=== PATIENT | female | born 1985 | race American Indian/Alaskan Native ===

== ENCOUNTER 2017-12-22 21:23 | Emergency (ER) | payer MEDICAID ==
[2017-12-22 22:34] LABS: Hematocrit 42.3 % (30.3-42.9); Hemoglobin 13.6 gm/dl (10.1-14.3); Mean Corpuscular HGB Conc 32 % (30-34); Mean Corpuscular Hemoglobin 32 pg (28-32); Mean Corpuscular Volume 101 fl (79-97); Platelet Count 273 K/mm3 (140-440)
[2017-12-22 22:36] LABS: Lymphocytes % (Auto) 28.3 % (13.4-35.0); Monocytes % (Auto) 4.8 % (0.0-7.3)
[2017-12-22 22:37] LABS: Basophils # (Auto) 0.1 K/mm3 (0.0-0.1); Basophils % (Auto) 0.7 % (0.0-1.8); Eosinophils # (Auto) 0.2 K/mm3 (0.0-0.4); Lymphocytes # (Auto) 2.5 K/mm3 (1.2-5.4); Monocytes # (Auto) 0.4 K/mm3 (0.0-0.8)
--- NOTE | 2017-12-22 22:37 | Cat Scan Report ---
FINAL REPORT PROCEDURE: CT HEAD/BRAIN WO CON TECHNIQUE: Computerized tomography of the head was performed without contrast material. HISTORY: [place] COMPARISON: No prior studies are available for comparison. FINDINGS: Skull and scalp: Normal. Paranasal sinuses: Normal. Ventricles and subarachnoid spaces: Normal. Cerebrum: No evidence of hemorrhage, acute infarction or mass . Cerebellum and brainstem: No evidence of hemorrhage, acute infarction or mass. Vasculature: Normal. Comments: None. IMPRESSION: Normal Examination
[2017-12-22 23:11] LABS: BUN/Creatinine Ratio 15; Blood Urea Nitrogen 12 mg/dL (7-17); Calcium 9.3 mg/dL (8.4-10.2); Hemolysis Index 126
--- NOTE | 2017-12-22 23:32 | XRay Report ---
FINAL REPORT PROCEDURE: XRAY CHEST 2 VIEWS TECHNIQUE: PA and lateral chest radiographs were obtained. CPT 75212 HISTORY: SOB COMPARISON: No prior studies are available for comparison. FINDINGS: Heart: Normal. Mediastinum/Vessels: Normal. Lungs/Pleural space: Normal. Bony thorax: No acute osseous abnormality. Other: IMPRESSION: Normal examination.
[2017-12-23] MEDS ORDERED: MOTRIN PO ONE ×2 (02:48→02:51)
--- NOTE | 2017-12-23 06:38 | Emergency Department Report ---
ED General Adult HPI - General Chief complaint: Headache Stated complaint: HEADACHE,SOB Time Seen by Provider: 12/23/17 06:35 Source: patient Mode of arrival: Ambulatory Limitations: No Limitations - History of Present Illness Initial comments: Patient states that last night she felt like she had to take deep breaths. She was not short of breath. She did not have chest pain. She was not coughing. She also stated that she had some headache. Apparently she complained of some blood blurred vision in triage. However to me she denied any visual change specifically blurred vision or diplopia. She has no headache at the time of my encounter. Her pulse oximetry is 100%. Respirations are unlabored and she had no recurrent episodes of essentially sighing or taking a deep breath. She admits to having an anxiety disorder but doesn't think she was anxious last night. Patient states she's had intermittent headaches for the last 2 weeks since she came here.. She has a primary care physician in [place]. Her sighing symptoms were last night. She's had no recent travel. She denies leg pain or swelling. -: minutes(s) Location: head Consistency: now resolved Improves with: none Worsens with: none Associated Symptoms: denies other symptoms Treatments Prior to Arrival: none - Related Data Previous Rx's Medication Instructions Recorded Last Taken Type Butalb/Acetamin/Caff 50-325-40 1 tab PO Q6HR PRN #10 tab 12/23/17 Unknown Rx [Fioricet] Allergies Allergy/AdvReac Type Severity Reaction Status Date / Time No Known Allergies Allergy Unverified 12/22/17 21:51 ED Review of Systems ROS: Stated complaint: HEADACHE,SOB Other details as noted in HPI Constitutional: denies: chills, fever Eyes: denies: eye pain, eye discharge, vision change ENT: denies: ear pain, throat pain Respiratory: denies: cough, shortness of breath, wheezing Cardiovascular: denies: chest pain, palpitations Endocrine: no symptoms reported Gastrointestinal: denies: abdominal pain, nausea, diarrhea Genitourinary: denies: urgency, dysuria, discharge Musculoskeletal: denies: back pain, joint swelling, arthralgia Skin: denies: rash, lesions Neurological: headache. denies: weakness, paresthesias Psychiatric: denies: anxiety, depression Hematological/Lymphatic: denies: easy bleeding, easy bruising ED Past Medical Hx - Past Medical History Previous Medical History?: No - Surgical History Past Surgical History?: Yes Additional Surgical History: x4 - Social History Smoking Status: Never Smoker Substance Use Type: None - Medications Home Medications: Home Medications Medication Instructions Recorded Confirmed Last Taken Type Butalb/Acetamin/Caff 50-325-40 1 tab PO Q6HR PRN #10 tab 12/23/17 Unknown Rx [Fioricet] ED Physical Exam - General Limitations: No Limitations General appearance: alert, in no apparent distress - Head Head exam: Present: atraumatic, normocephalic - Eye Eye exam: Present: normal appearance, PERRL, EOMI. Absent: scleral icterus - ENT ENT exam: Present: mucous membranes moist - Neck Neck exam: Present: normal inspection - Respiratory Respiratory exam: Present: normal lung sounds bilaterally. Absent: respiratory distress - Cardiovascular Cardiovascular Exam: Present: regular rate, normal rhythm. Absent: systolic murmur, diastolic murmur, rubs, gallop - GI/Abdominal GI/Abdominal exam: Present: soft, normal bowel sounds. Absent: distended, tenderness, guarding, rebound, rigid - Extremities Exam Extremities exam: Present: normal inspection, full ROM, normal capillary refill. Absent: tenderness, pedal edema, joint swelling, calf tenderness - Back Exam Back exam: Present: normal inspection - Neurological Exam Neurological exam: Present: alert, oriented X3, CN II-XII intact. Absent: motor sensory deficit - Psychiatric Psychiatric exam: Present: normal affect, normal mood - Skin Skin exam: Present: warm, dry, intact, normal color. Absent: rash ED Course Vital Signs 12/22/17 12/23/17 12/23/17 21:51 03:01 05:00 Temperature 97.8 F 97.7 F 97.8 F Pulse Rate 70 72 69 Respiratory 18 16 18 Rate Blood Pressure 143/102 Blood Pressure [Left] Blood Pressure 121/71 122/80 [Right] O2 Sat by Pulse 98 100 100 Oximetry 12/23/17 07:41 Temperature 98.2 F Pulse Rate 80 Respiratory 16 Rate Blood Pressure Blood Pressure 119/74 [Left] Blood Pressure [Right] O2 Sat by Pulse 100 Oximetry - Reevaluation(s) Reevaluation #1: Patient's vital signs are normal. Her pulse oximetry is 100%. Her workup does not suggest an emergency medical condition. The symptoms would be ordinarily consistent with anxiety/panic disorder. 12/23/17 08:11 ED Medical Decision Making - Lab Data Result diagrams: 12/22/17 22:01 12/22/17 22:01 Laboratory Results - last 24 hr 12/22/17 12/22/17 22:01 22:01 WBC 8.7 RBC 4.20 Hgb 13.6 Hct 42.3 MCV 101 H MCH 32 MCHC 32 RDW 15.0 Plt Count 273 Lymph % (Auto) 28.3 [place] % (Auto) 4.8 Eos % (Auto) 2.0 Baso % (Auto) 0.7 Lymph # 2.5 [place] # 0.4 Eos # 0.2 Baso # 0.1 Seg Neutrophils % 64.2 Seg Neutrophils # 5.6 Sodium 137 Potassium 4.4 Chloride 103.0 Carbon Dioxide 18 L Anion Gap 20 BUN 12 Creatinine 0.8 Estimated GFR > 60 BUN/Creatinine Ratio 15 Glucose 101 H Calcium 9.3 - EKG Data -: EKG Interpreted by [facility] EKG shows normal: sinus rhythm, axis, intervals, QRS complexes, ST-T waves Rate: normal - EKG Data Interpretation: no acute changes, other (right bundle-branch block) - Radiology Data Radiology results: report reviewed (chest x-ray and CT head were negative/normal ) Critical care attestation.: If time is entered above; I have spent that time in minutes in the direct care of this critically ill patient, excluding procedure time. ED Disposition Clinical Impression: Anxiety Cephalalgia Qualifiers: Headache type: unspecified Headache chronicity pattern: acute headache Intractability: not intractable Qualified Code(s): R51 - Headache Disposition: DC-01 TO HOME OR SELFCARE Is pt being admited?: No Does the pt Need Aspirin: No Condition: Stable Instructions: Acute Headache (ED), Anxiety (ED) Additional Instructions: Return any acute change or worsening symptoms. Follow up with a primary care provider. Prescriptions: Butalb/Acetamin/Caff 50-325-40 [Fioricet] 1 tab PO Q6HR PRN #10 tab PRN Reason: Headache Referrals: HOLA PATEL MD [Primary Care Provider] - 3-5 Days [facility] [Provider Group] - 3-5 Days Time of Disposition: 08:15
[2017-12-23 07:44] VITALS: BP 119/74
== END 2017-12-23 08:44 | disposition home or self-care (01) ==
LOC: ED 21:23
DX: F41.9 Anxiety disorder, unspecified (principal); G44.009 Cluster headache syndrome, unspecified, not intractable
CPT/HCPCS: 36415; 70450; 71046; 80048; 85025; 93005; 93010; 99284

== ENCOUNTER 2019-06-13 23:29 | Emergency (ER) | payer SELFPAY ==
[2019-06-14 01:00] LABS: Basophils # (Auto) 0.1 K/mm3 (0.0-0.1); Basophils % (Auto) 1.4 % (0.0-1.8); Eosinophils # (Auto) 0.5 K/mm3 (0.0-0.4); Eosinophils % (Auto) 6.6 % (0.0-4.3); Hematocrit 38.3 % (30.3-42.9); Hemoglobin 12.7 gm/dl (10.1-14.3); Lymphocytes # (Auto) 3.4 K/mm3 (1.2-5.4); Lymphocytes % (Auto) 48.4 % (13.4-35.0); Mean Corpuscular HGB Conc 33 % (30-34); Mean Corpuscular Volume 98 fl (79-97); Monocytes # (Auto) 0.4 K/mm3 (0.0-0.8); Monocytes % (Auto) 6.3 % (0.0-7.3); Platelet Count 270 K/mm3 (140-440); Red Blood Count 3.89 M/mm3 (3.65-5.03); Red Cell Distribution Width 14.6 % (13.2-15.2)
[2019-06-14 01:12] LABS: BUN/Creatinine Ratio 18; Blood Urea Nitrogen 14 mg/dL (7-17); Calcium 9.1 mg/dL (8.4-10.2); Hemolysis Index 10
--- NOTE | 2019-06-14 03:55 | Emergency Department Report ---
ED General Adult HPI - General Chief complaint: Headache Stated complaint: WEAKNESS,HEADACHE, DIZZINESS Time Seen by Provider: 06/14/19 03:42 Source: patient Mode of arrival: Ambulatory Limitations: No Limitations - History of Present Illness Initial comments: Is a 34-year-old female presents to ED complaining of headache for the past week. Patient describes headache as throbbing and aching in nature and localized to her frontotemporal region. She is also stating that she is Having some intermittent dizziness throughout the day. Patient denies any injury, trauma, falls. Patient states that she hasn't headaches before but she isn't sure what this dizziness. Patient is also complaining of sinus pressure. - Related Data Previous Rx's Medication Instructions Recorded Last Taken Type Butalb/Acetamin/Caff 50-325-40 1 tab PO Q6HR PRN #20 tab 06/14/19 Unknown Rx [Fioricet 50-325-40] Meclizine [Antivert] 25 mg PO TID PRN #30 tablet 06/14/19 Unknown Rx Allergies Allergy/AdvReac Type Severity Reaction Status Date / Time No Known Allergies Allergy Unverified 12/22/17 21:51 ED Review of Systems ROS: Stated complaint: WEAKNESS,HEADACHE, DIZZINESS Other details as noted in HPI Comment: All other systems reviewed and negative ED Past Medical Hx - Past Medical History Previous Medical History?: No - Surgical History Past Surgical History?: Yes Additional Surgical History: x4 - Social History Smoking Status: Never Smoker - Medications Home Medications: Home Medications Medication Instructions Recorded Confirmed Last Taken Type Butalb/Acetamin/Caff 50-325-40 1 tab PO Q6HR PRN #20 tab 06/14/19 Unknown Rx [Fioricet 50-325-40] Meclizine [Antivert] 25 mg PO TID PRN #30 tablet 06/14/19 Unknown Rx ED Physical Exam - General Limitations: No Limitations General appearance: alert, in no apparent distress - Head Head exam: Present: atraumatic, normocephalic - Eye Eye exam: Present: normal appearance - ENT ENT exam: Present: mucous membranes moist - Neck Neck exam: Present: normal inspection - Respiratory Respiratory exam: Present: normal lung sounds bilaterally. Absent: respiratory distress - Cardiovascular Cardiovascular Exam: Present: regular rate, normal rhythm. Absent: systolic murmur, diastolic murmur, rubs, gallop - GI/Abdominal GI/Abdominal exam: Present: soft, normal bowel sounds - Extremities Exam Extremities exam: Present: normal inspection - Back Exam Back exam: Present: normal inspection - Neurological Exam Neurological exam: Present: alert, oriented X3 - Psychiatric Psychiatric exam: Present: normal affect, normal mood - Skin Skin exam: Present: warm, dry, intact, normal color. Absent: rash ED Medical Decision Making - Lab Data Result diagrams: 06/14/19 00:37 06/14/19 00:37 Laboratory Last Values WBC 7.0 K/mm3 (4.5-11.0) 06/14/19 00:37 RBC 3.89 M/mm3 (3.65-5.03) 06/14/19 00:37 Hgb 12.7 gm/dl (10.1-14.3) 06/14/19 00:37 Hct 38.3 % (30.3-42.9) 06/14/19 00:37 MCV 98 fl (79-97) H 06/14/19 00:37 MCH 33 pg (28-32) H 06/14/19 00:37 MCHC 33 % (30-34) 06/14/19 00:37 RDW 14.6 % (13.2-15.2) 06/14/19 00:37 Plt Count 270 K/mm3 (140-440) 06/14/19 00:37 Lymph % (Auto) 48.4 % (13.4-35.0) H 06/14/19 00:37 [place] % (Auto) 6.3 % (0.0-7.3) 06/14/19 00:37 Eos % (Auto) 6.6 % (0.0-4.3) H 06/14/19 00:37 Baso % (Auto) 1.4 % (0.0-1.8) 06/14/19 00:37 Lymph # 3.4 K/mm3 (1.2-5.4) 06/14/19 00:37 [place] # 0.4 K/mm3 (0.0-0.8) 06/14/19 00:37 Eos # 0.5 K/mm3 (0.0-0.4) H 06/14/19 00:37 Baso # 0.1 K/mm3 (0.0-0.1) 06/14/19 00:37 Seg Neutrophils % 37.3 % (40.0-70.0) L 06/14/19 00:37 Seg Neutrophils # 2.6 K/mm3 (1.8-7.7) 06/14/19 00:37 Sodium 140 mmol/L (137-145) 06/14/19 00:37 Potassium 3.6 mmol/L (3.6-5.0) 06/14/19 00:37 Chloride 101.3 mmol/L (98-107) 06/14/19 00:37 Carbon Dioxide 29 mmol/L (22-30) 06/14/19 00:37 13 mmol/L 06/14/19 00:37 BUN 14 mg/dL (7-17) 06/14/19 00:37 0.8 mg/dL (0.7-1.2) 06/14/19 00:37 Estimated GFR > 60 ml/min 06/14/19 00:37 18 % 06/14/19 00:37 Glucose 98 mg/dL (65-100) 06/14/19 00:37 Calcium 9.1 mg/dL (8.4-10.2) 06/14/19 00:37 HCG, Qual Negative (Negative) 06/14/19 00:37 Critical care attestation.: If time is entered above; I have spent that time in minutes in the direct care of this critically ill patient, excluding procedure time. ED Disposition Clinical Impression: Vertigo, Acute headache Disposition: - TO HOME OR SELFCARE Is pt being admited?: No Does the pt Need Aspirin: No Condition: Stable Instructions: Acute Headache (ED), Migraine Headache (ED), Vertigo (ED), Dizziness (ED) Additional Instructions: Make sure to follow up with the primary care physician as discussed. Take all your medications as you've been prescribed. If you have any worsening symptoms or develop new symptoms please return to ED immediately. Prescriptions: Meclizine [Antivert] 25 mg PO TID PRN #30 tablet PRN Reason: Vertigo Butalb/Acetamin/Caff 50-325-40 [Fioricet 50-325-40] 1 tab PO Q6HR PRN #20 tab PRN Reason: Headache Referrals: PRIMARY CARE, [Primary Care Provider] - 3-5 Days [facility] [Outside] - 3-5 Days [facility] [Outside] - 3-5 Days Forms: Accompanied Note, Work/School Release Form(ED) Time of Disposition: 03:55
[2019-06-14 04:55] VITALS: BP 145/80
== END 2019-06-14 04:15 | disposition home or self-care (01) ==
LOC: ED 23:29
DX: R51 Headache (principal); R42 Dizziness and giddiness; Z98.890 Other specified postprocedural states; Z79.899 Other long term (current) drug therapy
CPT/HCPCS: 36415; 80048; 84703; 85025; 93005; 93010; 99283

== ENCOUNTER 2020-06-10 20:59 | Emergency (ER) | payer MEDICARE ==
[2020-06-10 21:12] VITALS: BP 130/75
--- NOTE | 2020-06-11 00:24 | Emergency Department Report ---
ED [place] [facility] Chief Complaint: Skin Rash Stated Complaint: BODY RASH Time Seen by Provider: 06/11/20 00:17 Duration: 1 week Location: Chest, Back, Abdomen Rash Symptoms: Yes Itching Other History: 35-year-old -[place] female presents to the emergency room for itchy rash on abdomen breasts and back x1 week. Patient reports that it started with a large patch in the middle of her back and then the next several days for rashes developed. Patient reports she is been using [id number] medicine and Benadryl with no improvement. Patient denies any new detergents soaps creams or lotions. She denies any pets new furniture. Denies any shortness of breath chest pain fever chills. ED Review of Systems ROS: Stated complaint: BODY RASH Other details as noted in HPI ED Past Medical Hx - Past Medical History Previous Medical History?: No - Surgical History Past Surgical History?: Yes Additional Surgical History: x4 - Social History Smoking Status: Never Smoker Substance Use Type: None - Medications Home Medications: Home Medications Medication Instructions Recorded Confirmed Last Taken Type Butalb/Acetamin/Caff 50-325-40 1 tab PO Q6HR PRN #20 tab 06/14/19 Unknown Rx [Fioricet 50-325-40] Meclizine [Antivert] 25 mg PO TID PRN #30 tablet 06/14/19 Unknown Rx Rash Exam - Exam General: Vital signs noted. No distress. Alert and acting appropriately. HEENT: No Periorbital Edema, No Conjuctival Injection, No Chemosis, No Perioral Edema, No Tongue Edema, No Uvular Edema, No Compromised Airway, No Drooling Lungs: Yes Good Air Exchange (Normal Breath Sounds), No Wheezes, No Ronchi, No Stridor, No Cough, No Labored Respirations, No Retractions, No Use of Accessory Muscles, No Other Abnormal Lung Sounds Skin: Yes Morbilliform rash ([place] tree distribution with a herald patch on the back), No Bulla(e), No Excoriations, No Weeping, No Tenderness, No Erythema Other: Positive: Abdomen Normal, Neurologic Normal, Musculoskeletal Normal ED Course Vital Signs 06/10/20 21:08 Temperature 98.7 F Pulse Rate 96 H Respiratory 20 Rate Blood Pressure 130/75 O2 Sat by Pulse 99 Oximetry ED Medical Decision Making - Medical Decision Making 35-year-old -[place] female presents to the emergency room for itchy rash on abdomen breasts and back x1 week. Patient reports that it started with a large patch in the middle of her back and then the next several days for rashes developed. Patient reports she is been using [id number] medicine and Benadryl with no improvement. Patient denies any new detergents soaps creams or lotions. She denies any pets new furniture. Denies any shortness of breath chest pain fever chills. Discussed the patient is appears to be pityriasis rosacea. Discussed with patient is a self-limiting virus rash. She can treat her symptoms. Follow-up with a it support consultant if not any improvement in 10 weeks. Critical care attestation.: If time is entered above; I have spent that time in minutes in the direct care of this critically ill patient, excluding procedure time. ED Disposition Clinical Impression: Pityriasis in adult Disposition: DC-01 TO HOME OR SELFCARE Is pt being admited?: No Does the pt Need Aspirin: No Condition: Stable Instructions: Pityriasis rosea (ED) Additional Instructions: This is a virus rash usually takes 2 to 12 weeks for resolution of rash. If it does not get any better I recommend following up with a it support consultant I have listed 1 below. Treat your symptoms such as itching. Avoid hot showers. Referrals: PRIMARY CARE,MD [Primary Care Provider] - 3-5 Days [facility] [Provider Group] - 3-5 Days
== END 2020-06-11 00:29 | disposition home or self-care (01) ==
LOC: ED 20:59
DX: L21.0 Seborrhea capitis (principal); Z98.890 Other specified postprocedural states; Z79.899 Other long term (current) drug therapy
CPT/HCPCS: 99282